=== PATIENT | female | born 1945 ===

== ENCOUNTER 2020-12-22 18:40 | Emergency (ER) | payer OTHER ==
[~2020-12-22] VITALS: Ht 165.1 cm; Wt 70.8 kg
[~2020-12-22 18:40] MED LIST: DOLOGEN CAPLET1 EACH PO; HYZAAR 100-251 UDTAB PO
[2020-12-22] MEDS ORDERED: NORVASC5 MG (18:57)
[2020-12-22] MEDS ORDERED: CIPRO500 MG PO (19:23)
== END 2020-12-22 20:48 | disposition home or self-care (01) ==
LOC: ER 18:40
DX: S50.812A Abrasion of left forearm, initial encounter (principal); L03.114 Cellulitis of left upper limb; W55.03XA Scratched by cat, initial encounter; Y93.89 Activity, other specified; Y92.89 Other specified places as the place of occurrence of the external cause; Y99.8 Other external cause status

== ENCOUNTER 2021-07-06 12:33 | Emergency (ER) | payer OTHER ==
[~2021-07-06] VITALS: Ht 165.1 cm; Wt 70.8 kg
[~2021-07-06 12:33] MED LIST changes: +CIPRO500 MG PO; +NORVASC5 MG
[2021-07-06] MEDS ORDERED: ULTRAM50 MG PO (16:03)
[2021-07-06] MEDS ORDERED: ORPHENADRINE C100 MG PO (16:03)
[2021-07-06] MEDS ORDERED: SKELAGESIC PO (16:03)
== END 2021-07-06 16:33 | disposition home or self-care (01) ==
LOC: ER 12:33
DX: S83.8X2A Sprain of other specified parts of left knee, initial encounter (principal); W01.0XXA Fall on same level from slipping, tripping and stumbling without subsequent striking against object, initial encounter; Y93.89 Activity, other specified; Y92.89 Other specified places as the place of occurrence of the external cause; Y99.8 Other external cause status